=== PATIENT | female | born 1965 | race Asian ===

== ENCOUNTER 2019-03-05 06:12 | Inpatient (IN) | payer BC ==
[~2019-03-05] VITALS: Ht 175.3 cm; Wt 83.1 kg
[2019-03-05 06:16] VITALS: Ht 175.3 cm; Wt 83.1 kg
[2019-03-05 06:50] LABS: BASOPHIL % 0.6 % (0-2); PLATELET COUNT 253 x10^3mcL (130-400)
[2019-03-05] MEDS ORDERED: INVOKANA300 MG PO (07:02)
[2019-03-05] MEDS ORDERED: METFORMIN HCL1000 MG GT (07:03)
[2019-03-05] MEDS ORDERED: ROSUVASTATIN CA10 MG PO (07:04)
[2019-03-05 07:10] LABS: CALCIUM 8.9 mg/dL (8.5-10.1); CARBON DIOXIDE 22.8 mmol/L (21-32); CHLORIDE SERUM 104 mmol/L (98-107); CREATININE SERUM 0.6 mg/dL (0.6-1.0); GFR1 > 60 mL/min; GLUCOSE SERUM 164 mg/dL (74-106); POTASSIUM SERUM 4.1 mmol/L (3.5-5.1); SODIUM SERUM 139 mmol/L (136-145)
[2019-03-05 07:15] LABS: ALBUMIN 3.8 g/dL (3.4-5.0); ALKALINE PHOSPHATASE 92 U/L (46-116); ALT/SGPT 26 U/L (14-59); AST/SGOT 12 U/L (15-37); BILIRUBIN TOTAL 0.5 mg/dL (0.20-1.00); TOTAL PROTEIN, SERUM 6.8 g/dL (6.4-8.2)
[2019-03-05 07:25] LABS: RED CELL DISTRIBUTION WIDTH 15.4 % (11.5-14.5)
[2019-03-05 09:57] VITALS: BP 108/63
[2019-03-05 10:00] LABS: T3 TOTAL 1.03 ng/mL
[2019-03-05 10:08] LABS: CHOLESTEROL/HDL RATIO 3.3; PHOSPHOROUS 3.7 mg/dL (2.5-4.9)
[2019-03-05 10:16] LABS: FREE T4 0.94 ng/dL (0.76-1.46); FREE THYROXINE INDEX 2.5 ug/dL (1.4-4.5); T4(THYROXINE) 6.4 ug/dL (4.7-13.3)
[2019-03-05 10:59] VITALS: BP 108/63
[2019-03-05 14:00] VITALS: BP 109/60
[2019-03-05 14:08] LABS: microscopic required? YES; urine erythrocyte TRACE (NEGATIVE)
[2019-03-05 14:16] LABS: AMPHETAMINE QUAL UR NONE DETECTED (See below)
[2019-03-05 17:34] VITALS: BP 116/67
[2019-03-05 20:33] VITALS: BP 108/57
[2019-03-06 05:34] VITALS: BP 105/63
[2019-03-06 06:32] LABS: CALCIUM 8.6 mg/dL (8.5-10.1); CARBON DIOXIDE 24.8 mmol/L (21-32); CHLORIDE SERUM 106 mmol/L (98-107); CREATININE SERUM 0.6 mg/dL (0.6-1.0); GFR1 > 60 mL/min; GLUCOSE SERUM 128 mg/dL (74-106); POTASSIUM SERUM 3.9 mmol/L (3.5-5.1); SODIUM SERUM 141 mmol/L (136-145)
[2019-03-06 06:34] LABS: BASOPHIL % 0.3 % (0-2); PLATELET COUNT 257 x10^3mcL (130-400)
[2019-03-06 06:49] LABS: RED CELL DISTRIBUTION WIDTH 15.7 % (11.5-14.5)
[2019-03-06] MEDS ORDERED: ELIQUIS5 MG PO (08:53)
[2019-03-06] MEDS ORDERED: CARCD120 PO (08:58)
[2019-03-06 09:16] VITALS: BP 114/67
== END 2019-03-06 12:05 | disposition home or self-care (01) | DRG 74 ==
LOC: EDBD 06:12 → ED 06:12 → DU 08:05
PROVIDERS: Emergency Medicine; ADMIT Internal Medicine
DX: G90.8 Other disorders of autonomic nervous system (principal); I48.91 Unspecified atrial fibrillation; E11.65 Type 2 diabetes mellitus with hyperglycemia
CPT/HCPCS: 82962; 83880; 84439; J3490; J7030; Q0092